=== PATIENT | female | born 1995 | race Caucasian/White ===

== ENCOUNTER 2021-08-24 07:53 | Day surgery (SDC) | payer BC ==
[2021-08-24] MEDS ORDERED: Ringers Lactate 1,000 ML IV ONE (08:37)
[2021-08-24 08:52] VITALS: O2SAT 100
[2021-08-24] MEDS ORDERED: propofoL 200 MG/20 ML VIAL IV ONE ×2 (09:24→09:36)
[2021-08-24] MEDS ORDERED: LIDOCAINE 1% MPF 5 ML VIAL ONE (09:25)
--- NOTE | 2021-08-24 09:43 | ENDO RPT ---
[address], [address] EGD PROCEDURE REPORT EXAM DATE: 08/24/2021 PATIENT NAME: Mary Ellen Chung MR#: [id number] BIRTHDATE: 1995 ATTENDING: Maverick Finnegan DR STATUS: outpatient PARTS TECHNICIAN: Minna Gonzalez RN and Ashwini Fernandes CST INDICATIONS: The patient is a 25 yr old Female here for an EGD due to GERD and epigastric pain PROCEDURE PERFORMED: EGD with biopsy and EGD with biopsy for H. pylori MEDICATIONS: Per Anesthesia. TOPICAL ANESTHETIC: none CONSENT: The patient understands the risks and benefits of the procedure and understands that these risks include, but are not limited to: sedation, allergic reaction, infection, perforation and/or bleeding. Alternative means of evaluation and treatment include, among others: physical exam, x-rays, and/or surgical intervention. The patient elects to proceed with this endoscopic procedure. DESCRIPTION OF PROCEDURE: During intra-op preparation period all mechanical medical equipment was checked for proper function. Hand hygiene and appropriate measures for infection prevention was taken. Procedure, possible complications, and alternatives including but not limited to the possibility of bleeding, perforation, tear, infection, sepsis, need for surgery, need for blood transfusion, and anesthesia related complications were explained to the patient. After the risks, benefits and alternatives of the procedure were thoroughly explained, Informed consent was verified, confirmed and timeout was successfully executed by the treatment team. The patient was placed in the left lateral position. The patient was anesthetized with topical anesthesia. Through the anesthetized oropharyngeal area, the scope was passed without any difficulty. The EG-[id number] ([id number]) endoscope was introduced through the mouth and advanced to the third portion of the duodenum. Retroflexed views revealed no abnormalities. The gastroscope was then slowly withdrawn and removed. Mild gastritis was found at the pylorus. A biopsy for H. pylori was taken. ADVERSE EVENTS: There were no complications. IMPRESSIONS: Mild gastritis was found at the pylorus RECOMMENDATIONS: 1. acid suppression therapy 2. anti-reflux regimen 3. await biopsy results 4. avoid NSAIDS 5. follow-up: office 2 week(s) 6. HIDA scan REPEAT EXAM: Maverick Finnegan DR eSigned: Maverick Finnegan DR 08/24/2021 9:42 AM cc: CPT CODES: ICD9 CODES: PATIENT NAME: Mary Ellen Chung MR#: [id number]
[2021-08-24 10:12] VITALS: TEMP 97.4
[2021-08-24 10:26] VITALS: BP 119/71
== END 2021-08-24 10:23 | disposition home or self-care (01) ==
LOC: OR 07:53
PROVIDERS: ATTEND Surgery
PROC: 0DB68ZX Excision of Stomach, Via Natural or Artificial Opening Endoscopic, Diagnostic (ICD-10-PCS; 2021-08-24)
PROC: 0DB98ZX Excision of Duodenum, Via Natural or Artificial Opening Endoscopic, Diagnostic (ICD-10-PCS; principal; 2021-08-24 10:15)
DX: K29.50 Unspecified chronic gastritis without bleeding (principal); R13.19 Other dysphagia; Z20.822 Contact with and (suspected) exposure to COVID-19
CPT/HCPCS: 88312; 81025; 88305; 43239; U0003; J2704 ×2; J7120